=== PATIENT | male | born 1950 | race Two or more races ===

== ENCOUNTER 2024-04-03 22:37 | Emergency (ER) | payer OTHER ==
[~2024-04-03] VITALS: Ht 177.8 cm; Wt 103.9 kg
[2024-04-03] MEDS ORDERED: JANUVIA100 MG PO (23:44)
[2024-04-03] MEDS ORDERED: TOPROL XL50 M1 (23:45)
[2024-04-03] MEDS ORDERED: ZESTRIL20 MG PO (23:45)
[2024-04-03] MEDS ORDERED: HYDROCHLOROTHIA25 MG PO (23:46)
[2024-04-03] MEDS ORDERED: ROSUVASTATIN CA20 MG PO (23:46)
[2024-04-03] MEDS ORDERED: FENOFIBRATE160 MG PO (23:47)
[2024-04-03] MEDS ORDERED: ST. JOSEPH ASPI81 M2 PO (23:48)
[2024-04-04] MEDS ORDERED: DIPHENHYDRAMINE HCL 50 MG/ML VIAL 1ML ONE (00:44)
[2024-04-04] MEDS ORDERED: DIPHENHYDRAMINE HCL 50 MG/ML VIAL 1ML IM ONE (00:45)
[2024-04-04] MEDS ORDERED: ALLEGRA ALLERG180 MG PO (00:46)
== END 2024-04-04 00:51 | disposition home or self-care (01) ==
LOC: ER 22:39
DX: R21 Rash and other nonspecific skin eruption (principal)